=== PATIENT | female | born 1985 | race Hispanic/Latino ===

== ENCOUNTER 2018-07-09 15:05 | Emergency (ER) | payer OTHER ==
[~2018-07-09] VITALS: Ht 162.6 cm; Wt 106.6 kg
--- OUTSIDE RECORDS SUMMARY | 2018-07-09 15:07 | XMS REPORT | Clinical Summary ---
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 Last Filed Vital Signs Not on file Plan of Treatment Health Maintenance Due Date Last Done Comments INFLUENZA VACCINE 09/09/2018 Results Not on fileafter 07/08/2017 Insurance Type Payer Benefit Subscriber ID Effective Phone Address Plan / Dates Group HMO CIGNA CIGNA OPEN xxxxxxxxxxx 2016-P ACCESS/NET resent WORK Medicaid MEDICAID MEDICAID xxxxxxxxx 2016-P resent (Work)
[2018-07-09] MEDS ORDERED: LIDOCAINE VISC 2% SOLN 15 ML UDC ONE (15:51)
[2018-07-09] MEDS ORDERED: BELLADONNA ALK/PHENOBARBITAL 5 ML UDC ONE (15:51)
[2018-07-09] MEDS ORDERED: MAGNESIUM/ALUMINUM/SIMETHICONE 30 ML UDC ONE (15:51)
[2018-07-09] MEDS ORDERED: KETOROLAC TROMETHAMINE 30 MG/ML VIAL IV STA (15:59)
[2018-07-09] MEDS ORDERED: DONNATAL/LIDOCAINE/MAALOX 30 ML SUSP PO ONE (16:00)
--- NOTE | 2018-07-09 16:00 | Diagnostic Imaging Report ---
Chest, 1 view, 07/09/2018. History: Chest pain. Comparison: None available. Findings: The cardiomediastinal silhouette and pulmonary vasculature are within normal limits for a portable exam. There is no focal consolidation or pleural effusion. There are no acute osseous or soft tissue abnormalities. Impression: No acute cardiopulmonary abnormality. Signed by: Lenny Saldana on 07/09/2018 3:56 PM
== END 2018-07-09 16:11 | disposition home or self-care (01) ==
LOC: FSED 15:05
DX: R07.89 Other chest pain (principal); K21.0 Gastro-esophageal reflux disease with esophagitis
CPT/HCPCS: 71045; 80053; 81003; 81025; 84484; 85025; 93005; 99284; J1885